=== PATIENT | female | born 1970 | race American Indian/Alaskan Native ===

== ENCOUNTER 2019-08-10 23:14 | Emergency (ER) | payer SELFPAY ==
[2019-08-10 23:40] VITALS: BP 106/67
[2019-08-11] MEDS ORDERED: IBUPROFEN 600 MG TAB PO ONE (00:18)
[2019-08-11] MEDS ORDERED: SULFAMETHOXAZOLE/TRIMETHOPRIM 800/160MG DS TAB PO ONE (00:18)
[2019-08-11] MEDS ORDERED: ACETAMINOPHEN 500 MG TAB PO ONE (00:18)
--- NOTE | 2019-08-11 01:01 | XRay Report ---
LEFT FOOT 3 VIEWS INDICATION / CLINICAL INFORMATION: Left great toe swelling and pain. COMPARISON: None available. FINDINGS: BONES and JOINT(S): No acute fracture or subluxation. No significant arthritis. SOFT TISSUES: Mild edema is seen along the first toe. ADDITIONAL FINDINGS: None. IMPRESSION: Mild left first toe edema without an acute osseous abnormality. Signer Name: Pedro Magaña MD Signed: 08/11/2019 12:57 AM Workstation Name: [id number]
--- NOTE | 2019-08-11 01:21 | Emergency Department Report ---
ED Extremity Problem HPI - General Chief complaint: Extremity Injury, Lower Stated complaint: LT FOOT TOE INJURED Source: patient Mode of arrival: Ambulatory Limitations: No Limitations - History of Present Illness Initial comments: Patient is a 48-year-old -Finnish male with no past medical history who presents to the ED we can't of acute onset persistent nontraumatic left great toe pain with swelling and erythematous rash for 1 week. Patient denies traumatic injury, numbness and tingling or weakness of the left great toe, dizziness, chest pain, shortness of breath, fever, chills, nausea and vomiting. MD Complaint: extremity pain (left great toe pain and swelling with erytehmatous rash), extremity swelling (Left great toe swelling, pain and redness), joint swelling (left great toe ), joint paint (left great toe) -: Sudden, week(s) (1) Location: left, lower extremity (left great toe), toe (great toe) History of Same: No -: Yes arthralgia, No fever, No associated dyspnea, No associated chest pain Radiation: distal Severity scale (0 -10): 8 Quality: aching, sharp, other Consistency: constant Improves with: nothing Worsens with: weight bearing, palpation Associated Symptoms: denies other symptoms, myalgias, arthralgias, rash (erythematous rash on distal left great toe). denies: chest pain, shortness of breath, fever - Related Data Previous Rx's Medication Instructions Recorded Last Taken Type Ciprofloxacin HCl [Cipro] 500 mg PO Q12H #14 tab 07/12/13 Unknown Rx Dicyclomine [Bentyl] 10 mg PO TID #15 capsule 07/12/13 Unknown Rx metroNIDAZOLE [Flagyl] 500 mg PO BID #14 tablet 07/12/13 Unknown Rx Ibuprofen [Motrin] 600 mg PO Q8H PRN #24 tablet 08/11/19 Unknown Rx Sulfamethoxazole/Trimethoprim 1 each PO Q12H #20 tablet 08/11/19 Unknown Rx [Bactrim DS TAB] traMADoL [Ultram] 50 mg PO Q6HR PRN #12 tablet 08/11/19 Unknown Rx Allergies Allergy/AdvReac Type Severity Reaction Status Date / Time No Known Allergies Allergy Unverified 07/12/13 08:23 ED Review of Systems ROS: Stated complaint: LT FOOT TOE INJURED Other details as noted in HPI Constitutional: denies: chills, fever Eyes: denies: eye pain, eye discharge, vision change ENT: denies: ear pain, throat pain Respiratory: denies: cough, shortness of breath, wheezing Cardiovascular: denies: chest pain, palpitations Endocrine: no symptoms reported Gastrointestinal: denies: abdominal pain, nausea, diarrhea Genitourinary: denies: urgency, dysuria Musculoskeletal: joint swelling (left great toe), arthralgia (left great toe p ain and swelling with erythematous rash), myalgia. denies: back pain Skin: rash (Erythematous maculopapular rash on left great toe), change in color. denies: lesions Neurological: denies: headache, weakness, paresthesias Psychiatric: denies: anxiety, depression Hematological/Lymphatic: denies: easy bleeding, easy bruising ED Past Medical Hx - Past Medical History Previous Medical History?: No - Surgical History Past Surgical History?: Yes Additional Surgical History: - Social History Smoking Status: Current Every Day Smoker Substance Use Type: None - Medications Home Medications: Home Medications Medication Instructions Recorded Confirmed Last Taken Type Ciprofloxacin HCl [Cipro] 500 mg PO Q12H #14 tab 07/12/13 Unknown Rx Dicyclomine [Bentyl] 10 mg PO TID #15 capsule 07/12/13 Unknown Rx metroNIDAZOLE [Flagyl] 500 mg PO BID #14 tablet 07/12/13 Unknown Rx Ibuprofen [Motrin] 600 mg PO Q8H PRN #24 tablet 08/11/19 Unknown Rx Sulfamethoxazole/Trimethoprim 1 each PO Q12H #20 tablet 08/11/19 Unknown Rx [Bactrim DS TAB] traMADoL [Ultram] 50 mg PO Q6HR PRN #12 tablet 08/11/19 Unknown Rx ED Physical Exam - General Limitations: No Limitations General appearance: alert, in no apparent distress - Head Head exam: Present: atraumatic, normocephalic - Eye Eye exam: Present: normal appearance, PERRL, EOMI Pupils: Present: normal accommodation - ENT ENT exam: Present: normal exam, normal orophraynx, mucous membranes moist, TM's normal bilaterally, normal external ear exam - Neck Neck exam: Present: normal inspection, full ROM. Absent: tenderness - Respiratory Respiratory exam: Present: normal lung sounds bilaterally. Absent: respiratory distress, wheezes, chest wall tenderness, accessory muscle use, decreased breath sounds - Cardiovascular Cardiovascular Exam: Present: regular rate, normal rhythm, normal heart sounds. Absent: systolic murmur, diastolic murmur, rubs, gallop - GI/Abdominal GI/Abdominal exam: Present: soft, normal bowel sounds. Absent: tenderness, guarding, rebound, hyperactive bowel sounds, organomegaly - Extremities Exam Extremities exam: Present: normal inspection, full ROM, tenderness (left great toe tenderness and swelling with erythematous rash), normal capillary refill, joint swelling (left great toe ) - Back Exam Back exam: Present: normal inspection, full ROM. Absent: tenderness, muscle spasm, paraspinal tenderness - Neurological Exam Neurological exam: Present: alert, oriented X3, CN II-XII intact, normal gait, reflexes normal - Psychiatric Psychiatric exam: Present: normal affect, normal mood - Skin Skin exam: Present: warm, dry, intact, normal color, rash (Erythematous rash on left great toe with tenderness), erythema, abrasion ED Course Vital Signs 08/10/19 08/11/19 23:18 00:48 Temperature 98.0 F Pulse Rate 80 Respiratory 18 20 Rate Blood Pressure 106/67 O2 Sat by Pulse 98 Oximetry ED Medical Decision Making - Radiology Data Radiology results: report reviewed, image reviewed Findings [facility] [address] [place] [address] XRay Report Signed Patient: SAMMI FARR MR# : [id number] : 1970 Acct:[id number] Age/Sex: 48 / F ADM Date: 08/10/19 Loc: ED Attending Dr: Ordering Physician: NICOLE MCGHEE Date of Service: 08/11/19 Procedure(s): XR foot 3+V LT Accession Number(s): [id number] cc: NICOLE MCGHEE Fluoro Time In Minutes: LEFT FOOT 3 VIEWS INDICATION / CLINICAL INFORMATION: Left great toe swelling and pain. COMPARISON: None available. FINDINGS: BONES and JOINT(S): No acute fracture or subluxation. No significant arthritis. SOFT TISSUES: Mild edema is seen along the first toe. ADDITIONAL FINDINGS: None. IMPRESSION: Mild left first toe edema without an acute osseous abnormality. Signer Name: Pedro Magaña MD Signed: 08/11/2019 12:57 AM Workstation Name: [email or web address] Transcribed By: RADHA Dictated By: Pedro Magaña MD Electronically Authenticated By: Pedro Magaña MD Signed Date/Time: 08/11/1956 DD/ TD/TT: - Medical Decision Making This is a 48-year-old male who presented to the ED with painful swollen erythematous macular papular rash on the left distal great toe for 1 week. In the ED, patient is alert and oriented 3 and is not in distress but appears to be in pain. Patient was treated for pain and given initial oral antibiotics. Left foot x-ray showsa mild left first toe edema without an acute osseous abnormality. No other abnormal findings were noted in this x-ray. Patient was discharged home on pain medication and antibiotics and advised to follow-up with his primary care physician in 7-10 days for reevaluation or return to the ED immediately if symptoms get worse. - Differential Diagnosis Toe cellulitis; Paronychia; Muscle strain, osteomyelitis; toe fracture Critical care attestation.: If time is entered above; I have spent that time in minutes in the direct care of this critically ill patient, excluding procedure time. ED Disposition Clinical Impression: Cellulitis of great toe of left foot, Pain of left great toe Disposition: -01 TO HOME OR SELFCARE Is pt being admited?: No Does the pt Need Aspirin: No Condition: Stable Instructions: Cellulitis (ED), Paronychia (ED) Additional Instructions: Take medication with food, drink plenty of fluids and follow-up with your primary care physician in 5-7 days for reevaluation. Return to the ED immediately if symptoms get worse. Prescriptions: Sulfamethoxazole/Trimethoprim [Bactrim DS TAB] 1 each PO Q12H #20 tablet Ibuprofen [Motrin] 600 mg PO Q8H PRN #24 tablet PRN Reason: Pain traMADoL [Ultram] 50 mg PO Q6HR PRN #12 tablet PRN Reason: Pain Referrals: CORINNE RODRIGEZ MD [Primary Care Provider] - 3-5 Days Forms: Work/School Release Form(ED) Time of Disposition: 01:21 Print Language: OCCITAN
== END 2019-08-11 02:07 | disposition home or self-care (01) ==
LOC: ED 23:14
DX: L03.032 Cellulitis of left toe (principal); F17.200 Nicotine dependence, unspecified, uncomplicated; Z98.890 Other specified postprocedural states

== ENCOUNTER 2020-02-18 16:13 | Emergency (ER) | payer SELFPAY ==
[2020-02-18 16:27] VITALS: BP 101/67
--- NOTE | 2020-02-18 16:38 | Emergency Department Report ---
Blank Doc - Documentation Documentation: 49-year-old female that presents with right hip pain s/p fall. This initial assessment/diagnostic orders/clinical plan/treatment(s) is/are subject to change based on patient's health status, clinical progression and re- assessment by fellow clinical providers in the ED. Further treatment and workup at subsequent clinical providers discretion. Patient/guardians urged not to elope from the ED as their condition may be serious if not clinically assessed and managed. Initial orders include: 1- Patient sent to [facility] for further evaluation and treatment 2- xrays
--- NOTE | 2020-02-18 17:16 | XRay Report ---
RIGHT HIP 2 VIEWS INDICATION / CLINICAL INFORMATION: MAIN COMPARISON: None available. FINDINGS: BONES / JOINT(S): No acute fracture or subluxation. No significant arthritis. SOFT TISSUES: No significant abnormality. ADDITIONAL FINDINGS: None. Signer Name: Ryan Malone MD Signed: 02/18/2020 5:11 PM Workstation Name: [id number]
[2020-02-18] MEDS ORDERED: dexAMETHasone 20 MG/5 ML VIAL IM ONE (21:41)
[2020-02-18] MEDS ORDERED: CYCLOBENZAPRINE 10 MG TAB PO ONE (21:41)
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
== END 2020-02-18 22:10 | disposition home or self-care (01) ==
LOC: ED 16:13
DX: M25.551 Pain in right hip (principal); F17.200 Nicotine dependence, unspecified, uncomplicated; Z87.81 Personal history of (healed) traumatic fracture; Z98.890 Other specified postprocedural states; Z79.899 Other long term (current) drug therapy; Z79.1 Long term (current) use of non-steroidal anti-inflammatories (NSAID); Z79.2 Long term (current) use of antibiotics
CPT/HCPCS: 73502; 96372; 99283; J1100

== ENCOUNTER 2022-01-06 17:23 | Emergency (ER) | payer SELFPAY ==
[2022-01-06 17:37] VITALS: BP 101/68
[2022-01-06] MEDS ORDERED: HYDROcodone/ACETAMINOPHEN 5-325 MG TAB PO ONE (21:16)
[2022-01-06] MEDS ORDERED: IBUPROFEN 600 MG TAB PO ONE (21:16)
[2022-01-06] MEDS ORDERED: ONDANSETRON 4 MG ODT TAB PO ONE (21:16)
--- NOTE | 2022-01-06 22:03 | XRay Report ---
Left knee 3 views INDICATION: Knee pain FINDINGS: Alignment appears normal. No acute fracture or dislocation. Only trace fluid in the joint. IMPRESSION: No acute findings. Signer Name: Trenton Menjivar MD Signed: 01/06/2022 9:59 PM Workstation Name: [id number]
--- NOTE | 2022-01-06 23:30 | Vascular Lab Report ---
DUPLEX DOPPLER LOWER EXTREMITY VEINS, LEFT INDICATION / CLINICAL INFORMATION: Posterior left knee swelling and pain. TECHNIQUE: Duplex doppler imaging was performed through the veins of the left lower extremity using v enous compression and other maneuvers. COMPARISON: None available. FINDINGS: LEFT COMMON FEMORAL VEIN: Negative. LEFT FEMORAL VEIN: Negative. LEFT POPLITEAL VEIN: Negative. LEFT CALF VEINS: Negative. ADDITIONAL FINDINGS: There is a heterogeneous none vascular mass involving the left calf soft tissues measuring 2.9 x 1.3 x 2.8 cm. IMPRESSION: 1. No sonographic evidence for DVT in the left lower extremity. 2. Heterogeneous nonvascular mass involving the left calf soft tissues possibly representing a hemato ma. Signer Name: Romero Rocha DO Signed: 01/06/2022 11:26 PM Workstation Name: [id number]
--- NOTE | 2022-01-07 00:10 | Emergency Department Report ---
ED Fall HPI - General Chief Complaint: Extremity Injury, Lower Stated Complaint: SWOLLEN KNEE Source: patient Mode of arrival: Ambulatory - History of Present Illness Initial Comments: Patient is a 51-year-old -Irish female with no past medical history presents to the ED with complaint of acute onset persistent left knee pain and swelling after she slipped off a chair and fell down landing on the left knee about 6 weeks ago. Patient states that the pain has been persistent and constant since the injury occurred 6 weeks ago. Patient however states in the last 1 week she noticed that the swelling on the left knee was worsening on the posterior left knee than on the anterior left knee with some ecchymosis developing around it. Patient states that with this increased swelling, the pain in the left knee got worse such that any ambulation or weightbearing on the left leg makes the pain in the left knee worse. Patient denies chest pain, shortness of breath, fever, chills, nausea and vomiting, back pain, hip pain, numbness and tingling or weakness of lower extremities bilaterally. MD Complaint: fall, other (Left knee pain and swelling) -: Sudden, week(s) (6) Fall From: chair When Fall Occurred: other (6 weeks ago) Fall Witnessed: yes, by family Place Fall Occurred: home Loss of Consciousness: none Prolonged Down Time?: no Symptoms Prior to Fall: none, other (Slipped off a chair and fell on left knee) Location: other (Left knee pain) Location - Extremities: Left: Knee (Left knee pain and swelling) Severity: severe Severity scale (0 -10): 8 Quality: sharp, aching Context: tripped/slipped Associated Symptoms: denies. denies: headache, neck pain, numbness, weakness, shortness of breath, abdominal pain, hematuria, unable to walk, lightheaded, vertigo, confusion - Related Data Previous Rx's Medication Instructions Recorded Last Taken Type Ciprofloxacin HCl [Cipro] 500 mg PO Q12H #14 tab 07/12/13 Unknown Rx Dicyclomine [Bentyl] 10 mg PO TID #15 capsule 07/12/13 Unknown Rx metroNIDAZOLE [Flagyl] 500 mg PO BID #14 tablet 07/12/13 Unknown Rx Sulfamethoxazole/Trimethoprim 1 each PO Q12H #20 tablet 08/11/19 Unknown Rx [Bactrim DS TAB] traMADoL [Ultram] 50 mg PO Q6HR PRN #12 tablet 08/11/19 Unknown Rx Menthol/Camphor [[place] 1 applicatio TP BID #24 oint...g. 02/18/20 Unknown Rx Ointment] Naproxen [EC-Naprosyn] 500 mg PO BID PRN #16 tablet. 02/18/20 Unknown Rx methOCARBAMOL [Robaxin TAB] 500 mg PO BID PRN #14 tab 02/18/20 Unknown Rx Ibuprofen [Motrin] 800 mg PO Q8HR PRN #21 tablet 02/21/20 Unknown Rx Baclofen 20 mg PO Q12H PRN #24 tab 01/07/22 Unknown Rx Ibuprofen [Motrin 600 MG tab] 600 mg PO Q8H PRN #30 tablet 01/07/22 Unknown Rx predniSONE [Deltasone] 40 mg PO QDAY #10 tab 01/07/22 Unknown Rx Allergies Allergy/AdvReac Type Severity Reaction Status Date / Time No Known Allergies Allergy Unverified 07/12/13 08:23 ED Review of Systems ROS: Stated complaint: SWOLLEN KNEE Other details as noted in HPI Constitutional: denies: chills, fever Eyes: denies: eye pain, eye discharge, vision change ENT: denies: ear pain, throat pain Respiratory: denies: cough, shortness of breath, wheezing Cardiovascular: denies: chest pain, palpitations Endocrine: no symptoms reported Gastrointestinal: denies: abdominal pain, nausea, diarrhea Genitourinary: denies: urgency, dysuria, discharge Musculoskeletal: joint swelling (Left knee pain and swelling), arthralgia (Left knee pain and swelling). denies: back pain Skin: denies: rash, lesions Neurological: denies: headache, weakness, paresthesias Psychiatric: denies: anxiety, depression Hematological/Lymphatic: denies: easy bleeding, easy bruising ED Past Medical Hx - Surgical History Additional Surgical History: , Right hand - Social History Smoking Status: Current Every Day Smoker Substance Use Type: Alcohol - Medications Home Medications: Home Medications Medication Instructions Recorded Confirmed Last Taken Type Ciprofloxacin HCl [Cipro] 500 mg PO Q12H #14 tab 07/12/13 Unknown Rx Dicyclomine [Bentyl] 10 mg PO TID #15 capsule 07/12/13 Unknown Rx metroNIDAZOLE [Flagyl] 500 mg PO BID #14 tablet 07/12/13 Unknown Rx Sulfamethoxazole/Trimethoprim 1 each PO Q12H #20 tablet 08/11/19 Unknown Rx [Bactrim DS TAB] traMADoL [Ultram] 50 mg PO Q6HR PRN #12 tablet 08/11/19 Unknown Rx Menthol/Camphor [[place] 1 applicatio TP BID #24 oint...g. 02/18/20 Unknown Rx Ointment] Naproxen [EC-Naprosyn] 500 mg PO BID PRN #16 tablet.dr 02/18/20 Unknown Rx methOCARBAMOL [Robaxin TAB] 500 mg PO BID PRN #14 tab 02/18/20 Unknown Rx Ibuprofen [Motrin] 800 mg PO Q8HR PRN #21 tablet 02/21/20 Unknown Rx Baclofen 20 mg PO Q12H PRN #24 tab 01/07/22 Unknown Rx Ibuprofen [Motrin 600 MG tab] 600 mg PO Q8H PRN #30 tablet 01/07/22 Unknown Rx predniSONE [Deltasone] 40 mg PO QDAY #10 tab 01/07/22 Unknown Rx ED Physical Exam - General Limitations: No Limitations General appearance: alert, in no apparent distress - Head Head exam: Present: atraumatic, normocephalic, normal inspection - Eye Eye exam: Present: normal appearance, PERRL, EOMI Pupils: Present: normal accommodation - ENT ENT exam: Present: normal exam, normal orophraynx, mucous membranes moist, TM's normal bilaterally, normal external ear exam - Neck Neck exam: Present: normal inspection, full ROM. Absent: tenderness - Respiratory Respiratory exam: Present: normal lung sounds bilaterally. Absent: respiratory distress, wheezes, rales, rhonchi, chest wall tenderness, accessory muscle use, decreased breath sounds, prolonged expiratory - Cardiovascular Cardiovascular Exam: Present: regular rate, normal rhythm, normal heart sounds. Absent: systolic murmur, diastolic murmur, rubs, gallop - GI/Abdominal GI/Abdominal exam: Present: soft, normal bowel sounds. Absent: tenderness, guarding, rebound, hyperactive bowel sounds, hypoactive bowel sounds, organomegaly, mass - Extremities Exam Extremities exam: Present: normal inspection, full ROM, tenderness (Palpable left knee tenderness with mild swelling; palpable swollen mass on posterior left knee with tenderness), normal capillary refill, joint swelling (Left knee), calf tenderness (Left calf tenderness). Absent: pedal edema - Back Exam Back exam: Present: normal inspection, full ROM. Absent: tenderness, CVA tenderness (R), CVA tenderness (L), muscle spasm, paraspinal tenderness, vertebral tenderness - Neurological Exam Neurological exam: Present: alert, oriented X3, CN II-XII intact, normal gait, reflexes normal - Psychiatric Psychiatric exam: Present: normal affect, normal mood - Skin Skin exam: Present: warm, dry, intact, normal color. Absent: rash ED Course Vital Signs 01/06/22 17:34 Temperature 98.6 F Pulse Rate 85 Respiratory 18 Rate Blood Pressure 101/68 [Right] O2 Sat by Pulse 97 Oximetry ED Medical Decision Making - Radiology Data Radiology results: report reviewed, image reviewed [facility] [address] [id number] Vascular Lab Report Signed Patient: SAMMI FARR MR# : [id number] : 1970 Acct:[id number] Age/Sex: 51 / F ADM Date: 01/06/22 Loc: ED Attending Dr: Ordering Physician: NICOLE MCGHEE Date of Service: 01/06/22 Procedure(s): VL venous duplex LE LT Accession Number(s): [id number] cc: NICOLE MCGHEE DUPLEX DOPPLER LOWER EXTREMITY VEINS, LEFT INDICATION / CLINICAL INFORMATION: Posterior left knee swelling and pain. TECHNIQUE: Duplex doppler imaging was performed through the veins of the left lower extremity using venous compression and other maneuvers. COMPARISON: None available. FINDINGS: LEFT COMMON FEMORAL VEIN: Negative. LEFT FEMORAL VEIN: Negative. LEFT POPLITEAL VEIN: Negative. LEFT CALF VEINS: Negative. ADDITIONAL FINDINGS: There is a heterogeneous none vascular mass involving the left calf soft tissues measuring 2.9 x 1.3 x 2.8 cm. IMPRESSION: 1. No sonographic evidence for DVT in the left lower extremity. 2. Heterogeneous nonvascular mass involving the left calf soft tissues possibly representing a hematoma. Signer Name: Romero Fuentes DO Signed: 01/06/2022 11:26 PM Workstation Name: [id number] Transcribed By: DINORA Dictated By: ROMERO FUENTES DO Electronically Authenticated By: ROMERO FUENTES DO Signed Date/Time: 01/06/222325 DD/ 24 TD/TT: [facility] [address] [place] [address] XRay Report Signed Patient: SAMMI FARR MR# : [id number] : 1970 Acct:[id number] Age/Sex: 51 / F ADM Date: 01/06/22 Loc: ED Attending Dr: Ordering Physician: NICOLE MCGHEE Date of Service: 01/06/22 Procedure(s): XR knee 3V LT Accession Number(s): [id number] cc: NICOLE MCGHEE Fluoro Time In Minutes: Left knee 3 views INDICATION: Knee pain FINDINGS: Alignment appears normal. No acute fracture or dislocation. Only trace fluid in the joint. IMPRESSION: No acute findings. Signer Name: Trenton Menjivar MD Signed: 01/06/2022 9:59 PM Workstation Name: [id number] Transcribed By: CW Dictated By: INA MENJIVAR MD Electronically Authenticated By: INA MENJIVAR MD Signed Date/Time: 01/06/222158 DD/ 57 TD/TT: - Medical Decision Making This is a 51-year-old -Irish female with no past medical history presents to the ED with complaint of acute onset persistent left knee pain and swelling after she slipped off a chair and fell down landing on the left knee about 6 weeks ago. Patient states that the pain has been persistent and c onstant since the injury occurred 6 weeks ago. Patient however states in the last 1 week she noticed that the swelling on the left knee was worsening on the posterior left knee than on the anterior left knee with some ecchymosis developing around it. Patient states that with this increased swelling, the pain in the left knee got worse such that any ambulation or weightbearing on the left leg makes the pain in the left knee worse. In the ED, patient is alert and oriented x3 and is not in any distress. Patient was treated for pain in the ED. Left knee x-ray showed no acute fractures or subluxations. Left leg Doppler ultrasound showed no sonographic evidence of DVT but a heterogeneous nonvascular mass involving the left calf soft tissues possibly representing a hematoma. On reevaluation, patient's pain is well controlled medication. Patient will discharge home on pain medications and advised to follow-up with her primary care physician in 7 to 10 days for reevaluation or return to the ED immediately if symptoms get worse. - Differential Diagnosis DVT; osteoarthritis; muscle strain; leg contusion; knee sprain; Critical care attestation.: If time is entered above; I have spent that time in minutes in the direct care of this critically ill patient, excluding procedure time. ED Disposition Clinical Impression: Contusion of left lower leg, initial encounter Sprain of left knee/leg Qualifiers: Encounter type: initial encounter Qualified Code(s): S83.92XA - Sprain of unspecified site of left knee, initial encounter Osteoarthritis of left knee Qualifiers: Osteoarthritis type: primary Qualified Code(s): M17.12 - Unilateral primary osteoarthritis, left knee Disposition: 01 HOME / SELF CARE / HOMELESS Is pt being admited?: No Does the pt Need Aspirin: No Condition: Stable Instructions: Knee Sprain, Adult, [id number], Contusion, [id number], Osteoarthritis Additional Instructions: Left knee x-ray showed no acute fractures or subluxations but small left knee effusion. Left leg Doppler ultrasound showed no sonographic evidence of DVT but an incidental finding of a small hematoma on posterior left calf. Therefore take medications with food, drink plenty of fluids and follow-up with your primary care physician in 7 to 10 days for reevaluation. Return to the ED immediately if symptoms get worse. Prescriptions: Baclofen 20 mg PO Q12H PRN #24 tab PRN Reason: Muscle Spasm predniSONE [Deltasone] 40 mg PO QDAY #10 tab Ibuprofen [Motrin 600 MG tab] 600 mg PO Q8H PRN #30 tablet PRN Reason: Pain Referrals: [facility] [Provider Group] - 7-10 days Forms: Work/School Release Form(ED) Time of Disposition: 00:17 Print Language: ISRAELI
== END 2022-01-07 00:56 | disposition home or self-care (01) ==
LOC: ED 17:23
DX: S80.02XA Contusion of left knee, initial encounter (principal); M17.12 Unilateral primary osteoarthritis, left knee; Z79.899 Other long term (current) drug therapy; F17.200 Nicotine dependence, unspecified, uncomplicated; W19.XXXA Unspecified fall, initial encounter; Y93.89 Activity, other specified; Y92.89 Other specified places as the place of occurrence of the external cause; Y99.8 Other external cause status
CPT/HCPCS: 99284; J3490; Q0162

== ENCOUNTER 2022-05-10 17:16 | Emergency (ER) | payer SELFPAY ==
[2022-05-10 19:45] LABS: Basophils % (Auto) 0.3 % (0.0-1.8); Eosinophils % (Auto) 1.1 % (0.0-4.3); Hematocrit 36.1 % (30.3-42.9); Hemoglobin 12.5 gm/dl (10.1-14.3); Lymphocytes # (Auto) 1.2 K/mm3 (1.2-5.4); Lymphocytes % (Auto) 33.8 % (13.4-35.0); Mean Corpuscular HGB Conc 35 % (30-34); Mean Corpuscular Volume 99 fl (79-97); Monocytes # (Auto) 0.4 K/mm3 (0.0-0.8); Monocytes % (Auto) 11.6 % (0.0-7.3); Platelet Count 185 K/mm3 (140-440); Red Blood Count 3.66 M/mm3 (3.65-5.03); Red Cell Distribution Width 13.8 % (13.2-15.2)
[2022-05-10 19:55] LABS: Alanine Aminotransferase 43 units/L (7-56); Albumin 4.7 g/dL (3.9-5); Blood Urea Nitrogen 10 mg/dL (7-17); Calcium 9.6 mg/dL (8.4-10.2); Hemolysis Index 7
[2022-05-10 20:03] LABS: BUN/Creatinine Ratio 14
--- NOTE | 2022-05-10 21:41 | XRay Report ---
CHEST 2 VIEWS INDICATION / CLINICAL INFORMATION: Chest Pain. COMPARISON: None available FINDINGS: SUPPORT DEVICES: None. HEART / MEDIASTINUM: No significant abnormality. LUNGS / PLEURA: No significant pulmonary or pleural abnormality. No pneumothorax. ADDITIONAL FINDINGS: No significant additional findings. IMPRESSION: 1. No acute findings. Signer Name: Gregg Gonzalez MD Signed: 05/10/2022 9:36 PM Workstation Name: [id number]
[2022-05-11 04:47] LABS: Color,Urine Yellow (Yellow)
[2022-05-11 04:49] LABS: Mucus,Urine 3+ /HPF
[2022-05-11 04:50] LABS: Ictotest,Urine Positive (Negative)
[2022-05-11 04:57] LABS: Amphetamine Screen,Urine Negative; Benzodiazepines Screen,Urine Negative; Cannabinoid Screen,Urine Negative; Methadone Screen,Urine Negative; Opiate Screen,Urine Negative
--- NOTE | 2022-05-11 05:01 | Emergency Department Report ---
ED Chest Pain HPI - General Chief Complaint: Chest Pain Stated Complaint: CHEST PAIN Time Seen by Provider: 05/11/22 04:30 Source: patient Mode of arrival: Ambulatory Limitations: No Limitations - History of Present Illness Initial Comments: 51-year-old female presenting with intermittent chest pain that has been going on for about 2 weeks worsening the last 48 to 72 hours. No fever or chills reported. Patient mentions some dry cough. No other modifying or associated factors reported. MD Complaint: chest pain Severity scale (0 -10): 9 - Related Data Previous Rx's Medication Instructions Recorded Last Taken Type Ciprofloxacin HCl [Cipro] 500 mg PO Q12H #14 tab 07/12/13 Unknown Rx Dicyclomine [Bentyl] 10 mg PO TID #15 capsule 07/12/13 Unknown Rx metroNIDAZOLE [Flagyl] 500 mg PO BID #14 tablet 07/12/13 Unknown Rx Sulfamethoxazole/Trimethoprim 1 each PO Q12H #20 tablet 08/11/19 Unknown Rx [Bactrim DS TAB] traMADoL [Ultram] 50 mg PO Q6HR PRN #12 tablet 08/11/19 Unknown Rx Menthol/Camphor [[place] 1 applicatio TP BID #24 oint...g. 02/18/20 Unknown Rx Ointment] Naproxen [EC-Naprosyn] 500 mg PO BID PRN #16 tablet.dr 02/18/20 Unknown Rx methOCARBAMOL [Robaxin TAB] 500 mg PO BID PRN #14 tab 02/18/20 Unknown Rx Ibuprofen [Motrin] 800 mg PO Q8HR PRN #21 tablet 02/21/20 Unknown Rx Baclofen 20 mg PO Q12H PRN #24 tab 01/07/22 Unknown Rx Ibuprofen [Motrin 600 MG tab] 600 mg PO Q8H PRN #30 tablet 01/07/22 Unknown Rx predniSONE [Deltasone] 40 mg PO QDAY #10 tab 01/07/22 Unknown Rx Ketorolac [Toradol] 10 mg PO Q6H PRN 5 Days #20 tab NS 05/11/22 Unknown Rx Omeprazole Magnesium [PriLOSEC Otc] 20 mg PO BID 30 Days #60 tab NS 05/11/22 Unknown Rx Allergies Allergy/AdvReac Type Severity Reaction Status Date / Time No Known Allergies Allergy Verified 09/07/22 18:11 Heart Score - HEART Score History: Slightly suspicious EKG: Normal Age: 45-65 Risk factors: No known risk factors Troponin: < normal limit HEART Score: 1 - EKG Read Time Time EKG Completed: 18:22 EKG Read Time: 18:30 - Critical Actions Critical Actions: 0-3 pts:0.9-1.7%risk of adverse cardiac event.Candidate for discharge ED Review of Systems ROS: Stated complaint: CHEST PAIN Other details as noted in HPI Comment: All other systems reviewed and negative Cardiovascular: chest pain ED Past Medical Hx - Surgical History Additional Surgical History: , Right hand - Social History Smoking Status: Current Every Day Smoker Substance Use Type: Alcohol - Medications Home Medications: Home Medications Medication Instructions Recorded Confirmed Last Taken Type Ciprofloxacin HCl [Cipro] 500 mg PO Q12H #14 tab 07/12/13 Unknown Rx Dicyclomine [Bentyl] 10 mg PO TID #15 capsule 07/12/13 Unknown Rx metroNIDAZOLE [Flagyl] 500 mg PO BID #14 tablet 07/12/13 Unknown Rx Sulfamethoxazole/Trimethoprim 1 each PO Q12H #20 tablet 08/11/19 Unknown Rx [Bactrim DS TAB] traMADoL [Ultram] 50 mg PO Q6HR PRN #12 tablet 08/11/19 Unknown Rx Menthol/Camphor [[place] 1 applicatio TP BID #24 oint...g. 02/18/20 Unknown Rx Ointment] Naproxen [EC-Naprosyn] 500 mg PO BID PRN #16 tablet.dr 02/18/20 Unknown Rx methOCARBAMOL [Robaxin TAB] 500 mg PO BID PRN #14 tab 02/18/20 Unknown Rx Ibuprofen [Motrin] 800 mg PO Q8HR PRN #21 tablet 02/21/20 Unknown Rx Baclofen 20 mg PO Q12H PRN #24 tab 01/07/22 Unknown Rx Ibuprofen [Motrin 600 MG tab] 600 mg PO Q8H PRN #30 tablet 01/07/22 Unknown Rx predniSONE [Deltasone] 40 mg PO QDAY #10 tab 01/07/22 Unknown Rx Ketorolac [Toradol] 10 mg PO Q6H PRN 5 Days #20 tab NS 05/11/22 Unknown Rx Omeprazole Magnesium [PriLOSEC Otc] 20 mg PO BID 30 Days #60 tab NS 05/11/22 Unknown Rx ED Physical Exam - General Limitations: No Limitations General appearance: alert, in no apparent distress - Head Head exam: Present: normal inspection - Eye Eye exam: Present: normal appearance Pupils: Present: normal accommodation - ENT ENT exam: Present: normal exam, normal orophraynx, mucous membranes moist - Neck Neck exam: Present: normal inspection, full ROM. Absent: tenderness - Respiratory Respiratory exam: Present: normal lung sounds bilaterally, chest wall tenderness. Absent: respiratory distress, accessory muscle use - Cardiovascular Cardiovascular Exam: Present: regular rate, normal rhythm, normal heart sounds - GI/Abdominal GI/Abdominal exam: Present: soft, normal bowel sounds. Absent: distended, tenderness - Extremities Exam Extremities exam: Present: normal inspection, normal capillary refill. Absent: tenderness - Back Exam Back exam: Absent: tenderness - Neurological Exam Neurological exam: Present: alert, oriented X3 - Psychiatric Psychiatric exam: Present: normal affect, normal mood - Skin Skin exam: Present: warm, normal color ED Course Vital Signs 05/10/22 05/11/22 05/11/22 18:07 01:37 01:38 Temperature 99.2 F 98.7 F Pulse Rate 67 76 Respiratory 18 8 L 18 Rate Blood Pressure 103/66 Blood Pressure 113/47 [Right] O2 Sat by Pulse 97 100 Oximetry KARLEE score - Karlee Score Age > 65: (0) No Aspirin use within the Past 7 Days: (0) No 3 or more CAD Risk Factors: (0) No 2 or more Angina events in past 24 hrs: (0) No Known CAD with more than 50% Stenosis: (0) No Elevated Cardiac Markers: (0) No ST Deviation Greater than 0.5mm: (0) No KARLEE Score: 0 ED Medical Decision Making - Lab Data Result diagrams: 05/10/22 19:04 05/10/22 19:04 - EKG Data -: EKG Interpreted by [place] EKG shows normal: sinus rhythm Rate: normal - EKG Data 05/11/22 05:08 Initial EKG noted with sinus rhythm at the rate of [address] elevation or depression in this normal ECG. - Medical Decision Making Here with chest pain/pressure--differential could be but not limited to myocardial infarction, pulmonary embolism, costochondritis, anxiety, gastritis, GERD, pancreatitis, and or pyelonephritis--in order to rule out the above-- so will go ahead and order routine cardiopulmonary work-up that include troponin, EKG, chest x-ray, BNP, CKMB, and CBC, CMP and urinalysis for any correctable infectious process or electrolyte abnormality as a cause. Initial ECG noted to be within normal limits coupled with normal troponin--and patient noted with chest wall tenderness this is likely muscular--patient reassured and DC home on Toradol and Prilosec with close follow-up with her primary doctor. Critical care attestation.: If time is entered above; I have spent that time in minutes in the direct care of this critically ill patient, excluding procedure time. ED Disposition Clinical Impression: Non-cardiac chest pain, Costochondritis, acute Disposition: HOME / SELF CARE / HOMELESS Is pt being admited?: No Does the pt Need Aspirin: No Condition: Stable Instructions: Costochondritis, [id number], Nonspecific Chest Pain, Adult, [id number] Additional Instructions: Take your pain medicine as prescribed to continue to help your symptoms Please call and follow-up with your primary doctor in the next 3 to 5 days for progress Please do not hesitate to call or return to emergency room if your symptoms worsen Increase your daily fluid to help your hydration Prescriptions: Omeprazole Magnesium [PriLOSEC Otc] 20 mg PO BID 30 Days #60 tab NS Ketorolac [Toradol] 10 mg PO Q6H PRN 5 Days #20 tab NS PRN Reason: Pain Referrals: PRIMARY CARE, [Primary Care Provider] - 3-5 Days Time of Disposition: 05:12
[2022-05-11] MEDS ORDERED: ASPIRIN 81 MG TAB CHEW PO ONE (05:08)
[2022-05-11 05:17] LABS: Cocaine Screen,Urine Positive
[2022-05-11 05:20] VITALS: BP 100/65
--- NOTE | 2022-05-11 10:36 | Electrocardiograph Report ---
[facility] Test Date: 2022-05-10 Test Time: 18:22:16 Pat Name: SAMMI FARR Department: Room: Gender: F Rn Charge: nurse : 1970 Requested By: CANDY ALANIZ Order Number: [id number] Reading MD: Joaquin Vuong Measurements Intervals [place] Rate: 73 P: 73 [place]: 109 QRS: 63 QRSD: 87 T: 65 QT: 414 QTc: 456 Interpretive Statements Sinus rhythm No previous ECG available for comparison Electronically Signed On 05-11-2022 10:35:15 EDT by Joaquin Vuong
== END 2022-05-11 06:06 | disposition home or self-care (01) ==
LOC: ED 17:16
DX: R07.9 Chest pain, unspecified (principal); M94.0 Chondrocostal junction syndrome [Tietze]; F17.200 Nicotine dependence, unspecified, uncomplicated; F10.20 Alcohol dependence, uncomplicated
CPT/HCPCS: 36415; 71046; 80053; 80307; 81001; 84484; 85025; 93005; 99284